=== PATIENT | female | born 1970 | race Hispanic/Latino ===

== ENCOUNTER 2018-09-15 17:16 | Emergency (ER) | payer OTHER | END 2018-09-15 18:51 | disposition home or self-care (01) | LOC: EDH 17:16 | DX: S90.32XA Contusion of left foot, initial encounter (principal); I10 Essential (primary) hypertension; F41.9 Anxiety disorder, unspecified; W21.01XA Struck by football, initial encounter; Y93.89 Activity, other specified; Y92.89 Other specified places as the place of occurrence of the external cause; Y99.8 Other external cause status | CPT/HCPCS: 73630 ==

== ENCOUNTER 2024-12-25 16:43 | Emergency (ER) | payer BC, OTHER ==
[~2024-12-25] VITALS: Ht 175.3 cm; Wt 72.1 kg
--- NOTE | 2024-12-25 16:58 | ERN ---
ED Note History of Present Illness Stated Complaint: PALPITATIONS, HEMATURIA, FLANK PAIN Chief Complaint: Palpitations Time Seen by MD: 16:51 Dictation: PATIENT IS COMING IN TODAY WITH COMPLAINTS OF INTERMITTENT PALPITATIONS WERE SHE HAS 7-8 BEATS SAID IT REGULAR AND THEN ONE HARD ONE FOR THE LAST SEVERAL DAYS. SHE STATES HE HAS HAD THE SAME HER EPISODE IN THE PAST AND WENT [facility] AND SEEN BY A OPERATIONS AND MAINTENANCE SUPERVISOR'S. SHE WAS ADVISED TO HAVE A 24 HOUR HOLTER MONITOR MRI OF HER CHEST. SHE DID NOT GO FOR ANY THESE TEST OR THE HOLTER MONITOR BECAUSE SHE DID NOT HAVE ANY MONEY ON-CALL. SHE STATES IT THIS TIME SHE IS NOT HAVING THE PALPITATIONS. NO HISTORY OF HEART DISEASE. NO NAUSEA VOMITING NO SHORTNESS A BREATH. Allergies: Coded Allergies: No Known Drug Allergies (Unverified Allergy, Unknown, 09/15/18) Past Medical History Past Medical History: Anxiety, Hypertension Additional Past Medical Hx: CHRONIC BACK PAIN Surgical History: Other Surgical History Other: BLADDER AT 8 YRS OLD History: Not Applicable RN Note Reviewed/Agreed w/PFSH: Yes Review of System Dictation CONSTITUTIONAL: NEGATIVE EXCEPT FOR HPI HEAD/FACE: NEGATIVE EXCEPT FOR HPI EENT: NEGATIVE EXCEPT FOR HPI RESPIRATORY: NEGATIVE EXCEPT FOR HPI HEART PALPITATIONS GASTROINTESTINAL/ABDOMINAL: NEGATIVE EXCEPT FOR HPI GENITOURINARY: NEGATIVE EXCEPT FOR HPI MUSCULOSKELETAL: NEGATIVE EXCEPT FOR HPI INTEGUMENTARY: NEGATIVE EXCEPT FOR HPI NEUROLOGICAL/PSYCH: NEGATIVE EXCEPT FOR HPI HEMATOLOGIC/LYMPHATIC: NEGATIVE EXCEPT FOR HPI ALL SYSTEMS NEGATIVE, EXCEPT NOTED ABOVE. 13 POINT REVIEW OF SYSTEMS ASSESSED AND ALL NEGATIVE EXCEPT FOR ABOVE. Initial Vital Sign VS Vital Signs Date Time Temp Pulse Resp B/P (MAP) Pulse Ox O2 Delivery O2 Flow Rate FiO2 12/25/24 16:46 97.9 73 16 200/84 100 Room Air 0 12/25/24 18:26 21 Physical Exam Dictation VITAL SIGNS REVIEWED GENERAL APPEARANCE: ALERT, ORIENTED X 3, NO ACUTE DISTRESS, WELL DEVELOPED, NOURISHED. 0/10, NO COMPLAINTS OF AT THIS TIME. STATES SHE IS NOT FEELING PALPITATIONS. HEAD AND FACE: NON-TRAUMATIC. EYES: PERRL, PINK CONJUNCTIVAS, EYELID NO TRAUMA, ANTERIOR CHAMBER WITH ARCUS SENILIS. EARS: PINNAS INTACT AND NO SIGNS OF TRAUMA OR ERYTHEMA EAR CANALS CLEAR AND NO DISCHARGE TM NO ERYTHEMA NOSE: NO DISCHARGE, NO BLEEDING. OROPHARYNX: MOUTH NORMAL, TONGUE PINK, PHARYNX CLEAR,NO ERYTHEMA, TONSILS NO EXUDATES, NO ABSCESSES NOTED, MUCOUS MEMBRANE MOIST NECK: SUPPLE, NON-TENDER, NO THYROMEGALY, NO MASSES, NO JVD, NO BRUITS BREAST:DEFERRED CHEST:NO TENDERNESS, NO CREPITUS, NO PARADOXICAL MOVEMENT, NO RETRACTIONS LUNGS:CLEAR, WELL-VENTILATED, SYMMETRIC, NO RALES, NO WHEEZING, NO RHONCHI, NO STRIDOR, GOOD BREATH SOUNDS BILATERALLY HEART: REGULAR RATE, REGULAR RHYTHM, NO MURMUR, NO GALLOPS VASCULAR: NO PERIPHERAL EDEMA, ABDOMEN: SOFT, POSITIVE BOWEL SOUNDS, NONDISTENDED, NO GUARDING, NONTENDER, NO REBOUND, NO MASSES NO HEPATOMEGALY, NO SPLENOMEGALY, NO BAUTISTA'S SIGN, NO HERNIAS. RECTAL: DEFERRED GENITAL: DEFERRED NEUROLOGICAL: NORMAL SPEECH, MOTOR FUNCTION INTACT, SENSORY FUNCTION INTACT MUSCULOSKELETAL: NECK NONTENDER, FULL RANGE OF MOTION, BACK NONTENDER, FULL RANGE OF MOTION, EXTREMITIES: NONTENDER, FULL RANGE OF MOTION SKIN: COLOR PINK, DRY, NO TURGOR, NO RASH, NO LACERATIONS, NO ABRASIONS, NO CONT USIONS. LYMPHATIC: DEFERRED Results (Laboratory/Radiology) Laboratory/Radiology Laboratory Tests Test 12/25/24 17:10 White Blood Count 6.4 K/uL (4.8-10.8) Red Blood Count 4.33 MIL/uL (4.00-5.50) Hemoglobin 15.4 g/dL (12.0-16.0) Hematocrit 43.9 % (36-48) Mean Corpuscular Volume 101.4 fL (79-99) H Mean Corpuscular Hemoglobin 35.6 pg (27.0-33.0) H Mean Corpuscular Hemoglobin Concent 35.1 g/dL (32.0-36.0) Red Cell Distribution Width 13.3 % (11.0-15.5) Platelet Count 146 K/uL (130-400) Mean Platelet Volume 10.6 fL (7.5-10.5) H Immature Granulocyte % (Auto) 0.3 % (0-1) Neutrophils (%) (Auto) 57.4 % (40.0-77.0) Lymphocytes (%) (Auto) 31.7 % (21.0-51.0) Monocytes (%) (Auto) 8.2 % (3.0-13.0) Eosinophils (%) (Auto) 1.9 % (0.0-8.0) Basophils (%) (Auto) 0.5 % (0.0-5.0) Neutrophils # (Auto) 3.7 K/uL (1.8-7.7) Lymphocytes # (Auto) 2.0 K/uL (1.0-4.8) Monocytes # (Auto) 0.5 K/uL (0.1-1.0) Eosinophils # (Auto) 0.12 K/uL (0.00-0.70) Basophils # (Auto) 0.03 K/uL (0.00-0.20) Absolute Immature Granulocyte (auto 0.02 K/uL (0-1) Nucleated Red Blood Cells 0.0 % (0.0-0.19) Sodium Level 136 mmol/L (136-145) Potassium Level 3.9 mmol/L (3.5-5.1) Chloride Level 97 mmol/L (101-111) L Carbon Dioxide Level 32 mmol/L (21-32) Blood Urea Nitrogen 8 mg/dL (7-18) Creatinine 0.6 mg/dL (0.5-1.0) Glomerular Filtration Rate Calc 107 mL/min (>90) Random Glucose 120 mg/dL (70-105) H Total Calcium 9.1 mg/dL (8.5-10.1) Magnesium Level 1.50 mg/dL (1.80-2.40) L Troponin I High Sensitivity 6 ng/L (4-50) CHEST X-RAY Labs Reviewed?: Yes EKG Comment: 1651/EKG SINUS RHYTHM/HEART RATE 64/LEFT ATRIAL ENLARGEMENT. LEFT VENTRICULAR HYPERTROPHY NOTED WITH REPOLARIZATION LATERAL LEADS ED Course ED Course Orders Procedure Category Date Status Time Cbc With Differential LAB 12/25/24 Complete 16:55 Chest 1vw RAD 12/25/24 Resulted 16:55 12 Lead Ekg Tracing- EKG 12/25/24 Logged Technical 16:55 Magnesium LAB 12/25/24 Complete 16:55 Troponin I High LAB 12/25/24 Complete Sensitivity 16:55 Basic Metabolic Panel LAB 12/25/24 Complete 16:55 Magnesium Oxide PHA 12/25/24 Complete (Mag-Ox) 17:30 Current Medications Medications (Trade) Dose Ordered Sig/Kirby Route PRN Reason Start Time Stop Time Status Last Admin Dose Admin Magnesium Oxide (Mag-Ox) 400 mg ONCE ONCE PO 12/25/24 17:30 12/25/24 17:34 DC 12/25/24 18:33 Vital Signs Date Time Temp Pulse Resp B/P (MAP) Pulse Ox O2 Delivery O2 Flow Rate FiO2 12/25/24 19:20 98.1 75 18 178/75 100 Room Air* 0 21 12/25/24 18:26 97.9 72 16 192/78 100 Room Air* 0 21 12/25/24 16:46 97.9 73 16 200/84 100 Room Air 0 2009/PATIENT DISCHARGED HOME WITH HYPERTENSION AND HYPOMAGNESEMIA. SHE WILL BE DISCHARGED HOME WITH ENALAPRIL MAGNESIUM 300 MG DAILY FOR 10 DAYS FOLLOW UP WITH OPERATIONS AND MAINTENANCE SUPERVISOR'S. HEART Score Response (Comments) Value EKG: Repolarization changes 1 Age: 45-65yrs (+1) 1 Risk Factors: 1-2 risk factors (+1) 1 Initial Troponin: Normal limit (0) 0 Total 3 Medical Decision Making MDM MDM: DIFFERENTIAL DIAGNOSIS: ACS/AMI/ELECTROLYTE IMBALANCE/DEHYDRATION/PNEUMONIA/BRONCHITIS RATIONALE: TESTS CONSIDERED AND ORDERED SECONDARY TO SHARED DECISION MAKING INC LUDE: LABS/EKGS/RADIOLOGY PREVIOUS OUTSIDE RECORDS REVIEWED: OLD ER VISITS. RISK OF COMPLICATION AND/OR MORBIDITY OR MORTALITY OF PATIENT MANAGEMENT: NONE MEDICATIONS-PER MEDICATION RECONCILIATION NEED FOR HOSPITALIZATION: PATIENT DOES NOT MEET CRITERIA FOR HOSPITALIZATION. NONE NEED FOR EMERGENCY MAJOR/MINOR SURGERY: NO THERE ARE NO SOCIAL CONCERNS WITH THIS PATIENT. PRESCRIPTION DRUG MANAGEMENT ENALAPRIL/MAGNESIUM PRESCRIPTIONS WILL INCLUDE SYMPTOMATIC CARE PATIENT'S PRIOR EXTERNAL MEDICAL RECORDS FROM OTHER ER VISITS WERE REVIEWED BY ME INDICATED. PRIOR TESTING AND RESULTS FROM PREVIOUS VISITS WERE REVIEWED. PRIOR TESTS WERE TAKEN INTO ACCOUNT WITH MEDICAL DECISION MAKING AND RESOURCE UTILIZATION, INDEPENDENT HISTORIAN/HISTORIANS WERE USED TO OBTAIN COMPLETE MEDICAL HISTORY. I INDEPENDENTLY INTERPRETED THE TEST THAT WERE PERFORMED, RESULTS WERE REVIEWED BY ME AND CONSIDERED FINDINGS ON RADIOLOGY IF ORDERED. MEDICAL MANAGEMENT AND EXAMINATION INTERPRETATION DISCUSSIONS WERE HAD BY ME WITH OTHER QUALIFIED HEALTHCARE PROFESSIONALS INDICATED FOR THE PATIENT'S CARE. DX & DISP Disposition: Discharge Departure Impression: Primary Impression: Palpitations Additional Impressions: Hypomagnesemia, Hypertension Condition: Stable Scripts Magnesium Oxide/Mag Aa Chelate (Magnesium 300 mg Capsule) 300 Mg Capsule 300 MG PO DAILY for 10 Days, #10 CAP 0 Refills Prov: MECHE NORTH 12/25/24 Clonidine HCl (Clonidine HCl) 0.1 Mg Tablet 1 TAB PO HS for 30 Days, #30 TAB 0 Refills Prov: MECHE NORTH 12/25/24 Additional Instructions: FOLLOW-UP WITH PRIMARY CARE PROVIDER IN 1 TO 2 DAYS. TAKE MEDICATIONS DIRECTED HERE IN THE EMERGENCY ROOM. OKAY TO CONTINUE HOME MEDICATIONS UNLESS OTHERWISE DISCUSSED DURING YOUR VISIT IN THE EMERGENCY ROOM TODAY. RETURN TO YOUR NEAREST EMERGENCY ROOM IF SYMPTOMS WORSEN OR IF THERE IS NO IMPROVEMENT. CALL 911 IF YOU NEED IMMEDIATE ASSISTANCE. TAKE TYLENOL OR MOTRIN [id number] NEEDED AND IF NO CONTRAINDICATIONS ARE PRESENT. INCREASE ORAL HYDRATION. A WOUND CULTURE OR URINE CULTURE WAS ORDERED HERE IN THE EM ERGENCY ROOM DEPARTMENT PLEASE FOLLOW-UP WITH PRIMARY CARE PROVIDER AND ADVISE THEM TO GET REPEAT PORTS FROM OUR FACILITY. IF YOU HAD ANY DONTAE WRAP/SPLINTS THAT WERE APPLIED HERE, PLEASE DO NOT REMOVE THEM UNTIL YOU SEE YOUR PRIMARY CARE OR SPECIALTY. TAKE MAGNESIUM DAILY DIRECTED UNTIL GONE. TAKE CLONIDINE DIRECTED FOR YOUR BLOOD PRESSURE. CALL OPERATIONS AND MAINTENANCE SUPERVISOR'S TOMORROW FOR A APPOINTMENT IN THE NEXT SEVERAL DAYS. SEE YOUR PRIMARY CARE DOCTOR FOR FOLLOW UP Referrals: SELF,REFERRAL (PCP) CLOVIS MEYERS MD Time of Disposition: 20:12 I have reviewed the case, and I agree with, Diagnosis and Plan MECHE NORTH Dec 25, 2024 16:58
[2024-12-25 17:16] LABS: IMMATURE GRANULOCYTE ABSOLUTE 0.02 K/uL (0-1); NUCLEATED RED BLOOD CELLS 0.0 % (0.0-0.19); PLATELET COUNT (AUTO) 146 K/uL (130-400); RED BLOOD CELL COUNT(AUTO) 4.33 MIL/uL (4.00-5.50); RED CELL DISTRIBUTION WIDTH 13.3 % (11.0-15.5); WHITE BLOOD COUNT (AUTO) 6.4 K/uL (4.8-10.8)
[2024-12-25 17:23] LABS: CREATININE 0.6 mg/dL (0.5-1.0); GLOMERULAR FILTR. RATE CALC 107.0 mL/min (>90); GLUCOSE,RANDOM 120.0 mg/dL (70-105); SODIUM SERUM 136.0 mmol/L (136-145); UREA NITROGEN, BLOOD 8.0 mg/dL (7-18)
--- NOTE | 2024-12-25 18:10 | NUR ---
PT JUST NOW PLACED IN ED BED 13
[2024-12-25] MEDS: MAGNESIUM OXIDE 400 MG TABLET PO ONE (18:33)
--- NOTE | 2024-12-25 18:55 | HMCIMG ---
EXAM: CR Chest, 1 View. CLINICAL HISTORY: CHEST PAIN COMPARISON: None provided. FINDINGS: LUNGS: There is no mass, infiltrate, or acute pulmonary abnormality. PLEURAL SPACES: No evidence of pleural effusion or pneumothorax. MEDIASTINUM: Cardiac size and mediastinal contours within normal limits. BONES: No aggressive appearing osseous lesion seen. IMPRESSION: No acute cardiopulmonary pathology is evident. /[place]
[2024-12-25 19:20] VITALS: BP 178/75; PULSE 75; RESP 18; TEMP 98.1; O2SAT 100
[2024-12-25] MEDS ORDERED: CLON0.1T PO (20:13)
[2024-12-25] MEDS ORDERED: MAGN300C PO (20:13)
--- NOTE | 2024-12-26 05:47 | EKG ---
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
== END 2024-12-25 20:38 | disposition home or self-care (01) ==
LOC: EDH 16:43
DX: R00.2 Palpitations (principal); E83.42 Hypomagnesemia; I10 Essential (primary) hypertension; F41.9 Anxiety disorder, unspecified; G89.29 Other chronic pain
CPT/HCPCS: 36415; 71045; 80048; 83735; 84484; 85025; 93005; 99284